=== PATIENT | male | born 1935 | race Caucasian/White ===

== ENCOUNTER 2017-01-24 11:42 | Emergency (ER) | payer MEDICARE ==
[~2017-01-24] VITALS: Ht 172.7 cm; Wt 67.6 kg
[~2017-01-24 11:42] MED LIST: ASPI-515 PO; INDA1.25 PO; LOVA10TA PO; TAMS-11 PO; VERA120C2 PO
[2017-01-24 12:20] VITALS: BP 145/66
== END 2017-01-24 12:42 | disposition home or self-care (01) ==
LOC: ED 12:40
DX: S61.412D Laceration without foreign body of left hand, subsequent encounter (principal); I10 Essential (primary) hypertension; X58.XXXD Exposure to other specified factors, subsequent encounter; Y92.89 Other specified places as the place of occurrence of the external cause; Y99.9 Unspecified external cause status
CPT/HCPCS: 99281; 99282

== ENCOUNTER → 2017-01-30 | Outpatient (CLI) | payer MEDICARE ==
[2017-01-30 11:22] LABS: ASPARTATE AMINO TRANSFERASE 9 U/L (15-37); BLOOD UREA NITROGEN 17 mg/dL (7-18)
== END | disposition home or self-care (01) ==
LOC: CFH 09:26
PROVIDERS: ATTEND Licensed Practical Nurse
DX: Z00.00 Encounter for general adult medical examination without abnormal findings (principal); I12.9 Hypertensive chronic kidney disease with stage 1 through stage 4 chronic kidney disease, or unspecified chronic kidney disease; N18.3 Chronic kidney disease, stage 3 (moderate); E78.2 Mixed hyperlipidemia; I10 Essential (primary) hypertension; J44.9 Chronic obstructive pulmonary disease, unspecified
CPT/HCPCS: 36415; 80053; 80061; 85027

== ENCOUNTER → 2017-05-07 | Outpatient (CLI) | payer MEDICARE ==
[2017-05-07 12:39] LABS: HEMATOCRIT 46.7 % (39.2-51.8); HEMOGLOBIN 15.4 g/dL (13.7-18.0); WHITE BLOOD COUNT 6.9 x10^3/uL (3.4-10)
[2017-05-07 12:59] LABS: ASPARTATE AMINO TRANSFERASE 14 U/L (15-37); BLOOD UREA NITROGEN 16 mg/dL (7-18)
== END | disposition home or self-care (01) ==
LOC: LAB 09:54
PROVIDERS: ATTEND Internal Medicine Cardiovascular Disease
DX: E78.2 Mixed hyperlipidemia (principal); I10 Essential (primary) hypertension
CPT/HCPCS: 36415; 80053; 80061; 85025

== ENCOUNTER 2017-07-09 10:38 | Emergency (ER) | payer MEDICARE ==
[~2017-07-09] VITALS: Ht 172.7 cm; Wt 66.0 kg
[2017-07-09] MEDS ORDERED: SODIUM CHLORIDE FLUSH 10ML SYR IVF ONE (11:00)
[2017-07-09] MEDS ORDERED: ALBUTEROL/IPRATROPIUM 2.5MG/0.5MG, 3 ML NPPB SCH (11:00)
[2017-07-09 11:30] LABS: BLOOD UREA NITROGEN 13 mg/dL (7-18)
[2017-07-09] MEDS ORDERED: ALBUTEROL/IPRATROPIUM 2.5MG/0.5MG, 3 ML ONE (11:41)
[2017-07-09 11:43] LABS: HEMATOCRIT 48.1 % (39.2-51.8); HEMOGLOBIN 16.4 g/dL (13.7-18.0); WHITE BLOOD COUNT 6.8 x10^3/uL (3.4-10)
[2017-07-09 11:44] LABS: DIFF TOTAL CELLS COUNTED 100 CELL DIFF
[2017-07-09 11:49] LABS: VERIFY COUNTS? YES
[2017-07-09 11:54] LABS: GIANT PLATELETS 1+; LARGE PLATELETS 1+
[2017-07-09 12:45] VITALS: BP 119/64
== END 2017-07-09 13:08 | disposition home or self-care (01) ==
LOC: ED 12:55
DX: J20.9 Acute bronchitis, unspecified (principal); J44.0 Chronic obstructive pulmonary disease with (acute) lower respiratory infection; I10 Essential (primary) hypertension
CPT/HCPCS: 36415; 71010; 80048; 82040; 83605; 83880; 85025; 93005; 94640; 99285; J7512; J7620

== ENCOUNTER → 2018-01-23 | Outpatient (CLI) | payer MEDICARE ==
[2018-01-23 12:54] LABS: CHLORIDE 105 mmol/L (98-107)
[2018-01-23 13:00] LABS: ALANINE AMINOTRANSFERASE 17 U/L (12-78); ALBUMIN 3.6 g/dL (3.4-5.0); ALKALINE PHOSPHATASE 64 U/L (45-117); ANION GAP 8 mmol/L (5-15); BILIRUBIN,TOTAL 0.6 mg/dL (0.2-1.0); CALCIUM 8.8 mg/dL (8.5-10.1); CHOL/HDL RATIO 2.8; CHOLESTEROL, TOTAL 154 mg/dL (140-239); CREATININE 1.23 mg/dL (0.7-1.3); HDL CHOL % 36 % (26-37); HDL CHOLESTEROL (DIRECT) 56 mg/dL (40-60); LDL CHOLESTEROL,CALCULATED 74 mg/dL (54-169); LDL/HDL RATIO 1.3 (0.5-3.0); TOTAL PROTEIN 7.2 g/dL (6.4-8.2); TRIGLYCERIDES 120 mg/dL (50-200); VLDL CHOLESTEROL 24 mg/dL (0-25)
== END ==
LOC: CFH 10:18
PROVIDERS: ATTEND Internal Medicine Cardiovascular Disease
DX: I10 Essential (primary) hypertension (principal); I35.1 Nonrheumatic aortic (valve) insufficiency; E78.2 Mixed hyperlipidemia; E83.51 Hypocalcemia
CPT/HCPCS: 36415; 80053; 80061

== ENCOUNTER 2018-01-24 10:42 | Emergency (ER) | payer MEDICARE ==
[~2018-01-24] VITALS: Ht 172.7 cm; Wt 67.5 kg
[2018-01-24] MEDS ORDERED: LIDOCAINE-MPF 1%, 5ML ONE ×2 (11:22→11:33)
[2018-01-24] MEDS ORDERED: LIDOCAINE-MPF 1%, 5ML INFIL ONE (11:30)
[2018-01-24] MEDS ORDERED: DIPH,PERTUSS(ACELL),TET VAC/PF 0.5 ML IM-VACC ONE (11:30)
[2018-01-24 12:59] VITALS: BP 158/78
[2018-01-24] MEDS ORDERED: BACITRACIN ZINC OINT 500U/GM, 0.9 GM ONE (13:12)
== END 2018-01-24 13:31 | disposition home or self-care (01) ==
LOC: ED 13:28
DX: S01.01XA Laceration without foreign body of scalp, initial encounter (principal); S01.81XA Laceration without foreign body of other part of head, initial encounter; I10 Essential (primary) hypertension; J45.909 Unspecified asthma, uncomplicated; J44.9 Chronic obstructive pulmonary disease, unspecified; E78.5 Hyperlipidemia, unspecified; Z87.891 Personal history of nicotine dependence; W19.XXXA Unspecified fall, initial encounter; Y93.89 Activity, other specified; Y92.89 Other specified places as the place of occurrence of the external cause; Y99.8 Other external cause status
CPT/HCPCS: 12002; 99284

== ENCOUNTER 2018-01-30 11:05 | Emergency (ER) | payer MEDICARE ==
[~2018-01-30] VITALS: Ht 172.7 cm; Wt 68.4 kg
[2018-01-30 11:10] VITALS: BP 185/79
== END 2018-01-30 12:27 | disposition home or self-care (01) ==
LOC: ED 12:26
DX: S01.01XD Laceration without foreign body of scalp, subsequent encounter (principal); I10 Essential (primary) hypertension; J44.9 Chronic obstructive pulmonary disease, unspecified; W18.30XD Fall on same level, unspecified, subsequent encounter
CPT/HCPCS: 99282

== ENCOUNTER → 2018-02-15 | Outpatient (CLI) | payer MEDICARE | LOC: CFH 10:10 | PROVIDERS: ATTEND Internal Medicine | DX: S09.90XA Unspecified injury of head, initial encounter (principal); M48.02 Spinal stenosis, cervical region; Z91.81 History of falling; X58.XXXA Exposure to other specified factors, initial encounter; Y93.89 Activity, other specified; Y92.89 Other specified places as the place of occurrence of the external cause; Y99.8 Other external cause status | CPT/HCPCS: 72050 ==

== ENCOUNTER → 2018-03-11 | Outpatient (CLI) | payer MEDICARE | END | disposition home or self-care (01) | LOC: CFH 10:28 | PROVIDERS: ATTEND Internal Medicine | DX: M48.02 Spinal stenosis, cervical region (principal); G31.9 Degenerative disease of nervous system, unspecified; R90.82 White matter disease, unspecified; M50.00 Cervical disc disorder with myelopathy, unspecified cervical region; M50.80 Other cervical disc disorders, unspecified cervical region; R20.9 Unspecified disturbances of skin sensation; Z91.81 History of falling | CPT/HCPCS: 70450; 72141 ==

== ENCOUNTER → 2018-03-21 | Outpatient (CLI) | payer MEDICARE | END | disposition home or self-care (01) | LOC: CFH 10:41 | PROVIDERS: ATTEND Orthopaedic Surgery | DX: M50.321 Other cervical disc degeneration at C4-C5 level (principal) | CPT/HCPCS: 72052 ==

== ENCOUNTER 2018-04-30 22:19 | Emergency (ER) | payer MEDICARE ==
[~2018-04-30] VITALS: Ht 172.7 cm; Wt 65.0 kg
[2018-04-30 22:27] VITALS: BP 121/65
[2018-04-30 23:32] LABS: BASOPHILS # (AUTO) 0.02 x10^3/uL (0-0.1); BASOPHILS % (AUTO) 0 % (0-1); EOSINOPHILS # (AUTO) 0.17 x10^3/uL (0-0.4); EOSINOPHILS % (AUTO) 2 % (1-7); LYMPHOCYTES # (AUTO) 1.85 x10^3/uL (1-3.4); LYMPHOCYTES % (AUTO) 23 % (22-44); MD NO; MEAN CORPUSCULAR HEMOGLOBIN 32.8 pg (27.5-34.5); MEAN CORPUSCULAR HGB CONC 34.2 g/dL (33.2-36.2); MEAN CORPUSCULAR VOLUME 95.9 fL (81-97); MONOCYTES # (AUTO) 0.56 x10^3/uL (0.2-0.8); MONOCYTES % (AUTO) 7 % (2-9); NEUTROPHILS # (AUTO) 5.42 x10^3/uL (1.8-6.8); NEUTROPHILS % (AUTO) 68 % (42-75); PLATELET COUNT 261 x10^3/uL (130-400); RED BLOOD COUNT 4.52 x10^6/uL (4.38-5.82); RED CELL DISTRIBUTION WIDTH 12.9 % (9.4-14.8)
[2018-04-30 23:42] LABS: ALBUMIN 3.3 g/dL (3.4-5.0); ANION GAP 10 mmol/L (5-15); CALCIUM 9.1 mg/dL (8.5-10.1); CHLORIDE 107 mmol/L (98-107); CREATININE 1.42 mg/dL (0.7-1.3)
[2018-04-30 23:46] LABS: TROPONIN I < 0.015 ng/mL (0.000-0.045)
== END 2018-05-01 00:49 | disposition home or self-care (01) ==
LOC: ED 05-01 00:35
DX: F10.120 Alcohol abuse with intoxication, uncomplicated (principal); J44.9 Chronic obstructive pulmonary disease, unspecified; E78.5 Hyperlipidemia, unspecified; I10 Essential (primary) hypertension; W19.XXXA Unspecified fall, initial encounter; Y93.89 Activity, other specified; Y99.8 Other external cause status; Y92.59 Other trade areas as the place of occurrence of the external cause
CPT/HCPCS: 36415; 80048; 80307; 82040; 84484; 85025; 93005; 99285

== ENCOUNTER → 2018-05-16 | Outpatient (CLI) | payer MEDICARE ==
[2018-05-16 12:37] LABS: BASOPHILS # (AUTO) 0.02 x10^3/uL (0-0.1); BASOPHILS % (AUTO) 0 % (0-1); EOSINOPHILS # (AUTO) 0.21 x10^3/uL (0-0.4); EOSINOPHILS % (AUTO) 3 % (1-7); LYMPHOCYTES # (AUTO) 1.21 x10^3/uL (1-3.4); LYMPHOCYTES % (AUTO) 19 % (22-44); MD NO; MEAN CORPUSCULAR HEMOGLOBIN 32.2 pg (27.5-34.5); MEAN CORPUSCULAR HGB CONC 33.6 g/dL (33.2-36.2); MEAN PLATELET VOLUME 9.9 fL (7.4-10.4); MONOCYTES # (AUTO) 0.44 x10^3/uL (0.2-0.8); MONOCYTES % (AUTO) 7 % (2-9); NEUTROPHILS # (AUTO) 4.36 x10^3/uL (1.8-6.8); NEUTROPHILS % (AUTO) 70 % (42-75); PLATELET COUNT 169 x10^3/uL (130-400); RED BLOOD COUNT 4.71 x10^6/uL (4.38-5.82); RED CELL DISTRIBUTION WIDTH 12.7 % (9.4-14.8)
[2018-05-16 12:47] LABS: ALBUMIN 3.3 g/dL (3.4-5.0); ANION GAP 7 mmol/L (5-15); CALCIUM 8.7 mg/dL (8.5-10.1); CHLORIDE 108 mmol/L (98-107)
[2018-05-16 12:57] LABS: ALANINE AMINOTRANSFERASE 12 U/L (12-78); ALKALINE PHOSPHATASE 65 U/L (45-117); BILIRUBIN,TOTAL 0.6 mg/dL (0.2-1.0); CHOL/HDL RATIO 4.2; CHOLESTEROL, TOTAL 208 mg/dL (140-239); CREATININE 1.26 mg/dL (0.7-1.3); FREE T4 (FREE THYROXINE) 0.93 ng/dL (0.76-1.46); HDL CHOL % 24 % (26-37); HDL CHOLESTEROL (DIRECT) 49 mg/dL (40-60); LDL CHOLESTEROL,CALCULATED 131 mg/dL (54-169); LDL/HDL RATIO 2.7 (0.5-3.0); TOTAL PROTEIN 6.7 g/dL (6.4-8.2); TRIGLYCERIDES 138 mg/dL (50-200); VLDL CHOLESTEROL 28 mg/dL (0-25)
== END | disposition home or self-care (01) ==
LOC: CFH 09:15
PROVIDERS: ATTEND Family Medicine
DX: E78.2 Mixed hyperlipidemia (principal); N40.0 Benign prostatic hyperplasia without lower urinary tract symptoms; R53.83 Other fatigue; Z87.891 Personal history of nicotine dependence
CPT/HCPCS: 36415; 80053; 80061; 84153; 84439; 84443; 84481; 85025

== ENCOUNTER → 2018-06-28 | Outpatient (CLI) | payer MEDICARE | END | disposition home or self-care (01) | LOC: CFH 11:09 | PROVIDERS: ATTEND Physician Assistant Surgical | DX: M43.22 Fusion of spine, cervical region (principal) | CPT/HCPCS: 72040 ==

== ENCOUNTER 2019-03-11 10:00 | Outpatient (CLI) | payer MEDICARE ==
[2019-03-11 12:53] LABS: BASOPHILS # (AUTO) 0.03 x10^3/uL (0-0.1); BASOPHILS % (AUTO) 1 % (0-1); EOSINOPHILS # (AUTO) 0.23 x10^3/uL (0-0.4); EOSINOPHILS % (AUTO) 4 % (1-7); LYMPHOCYTES # (AUTO) 1.25 x10^3/uL (1-3.4); LYMPHOCYTES % (AUTO) 21 % (22-44); MD NO; MEAN CORPUSCULAR HGB CONC 33.4 g/dL (33.2-36.2); MEAN CORPUSCULAR VOLUME 98.6 fL (81-97); MONOCYTES # (AUTO) 0.52 x10^3/uL (0.2-0.8); MONOCYTES % (AUTO) 9 % (2-9); NEUTROPHILS # (AUTO) 4.07 x10^3/uL (1.8-6.8); NEUTROPHILS % (AUTO) 67 % (42-75); PLATELET COUNT 184 x10^3/uL (130-400); RED BLOOD COUNT 4.81 x10^6/uL (4.38-5.82); RED CELL DISTRIBUTION WIDTH 12.8 % (9.4-14.8)
[2019-03-11 13:03] LABS: CHLORIDE 106 mmol/L (98-107)
[2019-03-11 13:12] LABS: ALANINE AMINOTRANSFERASE 19 U/L (12-78); ALBUMIN 3.6 g/dL (3.4-5.0); ALKALINE PHOSPHATASE 61 U/L (45-117); ANION GAP 3 mmol/L (5-15); BILIRUBIN,TOTAL 0.7 mg/dL (0.2-1.0); CALCIUM 8.8 mg/dL (8.5-10.1); CHOL/HDL RATIO 3.6; CHOLESTEROL, TOTAL 193 mg/dL (140-239); CREATININE 1.26 mg/dL (0.7-1.3); HDL CHOL % 28 % (26-37); HDL CHOLESTEROL (DIRECT) 54 mg/dL (40-60); LDL CHOLESTEROL,CALCULATED 120 mg/dL (54-169); LDL/HDL RATIO 2.2 (0.5-3.0); TOTAL PROTEIN 6.7 g/dL (6.4-8.2); TRIGLYCERIDES 94 mg/dL (50-200); VLDL CHOLESTEROL 19 mg/dL (0-25)
== END 2019-03-11 23:59 | disposition home or self-care (01) ==
LOC: CFH 10:00
PROVIDERS: ATTEND Internal Medicine Cardiovascular Disease
DX: E78.2 Mixed hyperlipidemia (principal); I10 Essential (primary) hypertension
CPT/HCPCS: 36415; 80053; 80061; 85025

== ENCOUNTER 2019-07-14 10:16 | Outpatient (CLI) | payer MEDICARE | END 2019-07-14 23:59 | disposition home or self-care (01) | LOC: CFH 10:16 | PROVIDERS: ATTEND Orthopaedic Surgery | DX: M47.812 Spondylosis without myelopathy or radiculopathy, cervical region (principal) | CPT/HCPCS: 72040; 72141 ==

== ENCOUNTER → 2019-10-30 | Outpatient (CLI) | payer MEDICARE ==
[2019-10-30 13:00] LABS: BASOPHILS # (AUTO) 0.04 x10^3/uL (0-0.1); BASOPHILS % (AUTO) 1 % (0-1); EOSINOPHILS # (AUTO) 0.36 x10^3/uL (0-0.4); EOSINOPHILS % (AUTO) 4 % (1-7); LYMPHOCYTES # (AUTO) 1.48 x10^3/uL (1-3.4); LYMPHOCYTES % (AUTO) 18 % (22-44); MD NO; MEAN CORPUSCULAR HEMOGLOBIN 33.1 pg (27.5-34.5); MEAN CORPUSCULAR HGB CONC 33.8 g/dL (33.2-36.2); MEAN CORPUSCULAR VOLUME 97.8 fL (81-97); MEAN PLATELET VOLUME 10.2 fL (7.4-10.4); MONOCYTES # (AUTO) 0.51 x10^3/uL (0.2-0.8); MONOCYTES % (AUTO) 6 % (2-9); NEUTROPHILS # (AUTO) 5.92 x10^3/uL (1.8-6.8); NEUTROPHILS % (AUTO) 71 % (42-75); PLATELET COUNT 185 x10^3/uL (130-400)
[2019-10-30 13:36] LABS: ALBUMIN 3.1 g/dL (3.4-5.0); ANION GAP 7 mmol/L (5-15); CALCIUM 8.5 mg/dL (8.5-10.1); CHLORIDE 107 mmol/L (98-107); CHOLESTEROL, TOTAL 187 mg/dL (140-239); CREATININE 1.39 mg/dL (0.7-1.3)
[2019-10-30 13:38] LABS: ALANINE AMINOTRANSFERASE 11 U/L (12-78); ALKALINE PHOSPHATASE 71 U/L (45-117); BILIRUBIN,TOTAL 0.3 mg/dL (0.2-1.0); CHOL/HDL RATIO 3.5; HDL CHOL % 28 % (26-37); HDL CHOLESTEROL (DIRECT) 53 mg/dL (40-60); LDL CHOLESTEROL,CALCULATED 120 mg/dL (54-169); LDL/HDL RATIO 2.3 (0.5-3.0); TOTAL PROTEIN 6.2 g/dL (6.4-8.2); TRIGLYCERIDES 69 mg/dL (50-200); VLDL CHOLESTEROL 14 mg/dL (0-25)
== END | disposition home or self-care (01) ==
LOC: CFH 09:27
PROVIDERS: ATTEND Internal Medicine Cardiovascular Disease
DX: I12.9 Hypertensive chronic kidney disease with stage 1 through stage 4 chronic kidney disease, or unspecified chronic kidney disease (principal); N18.2 Chronic kidney disease, stage 2 (mild); I35.1 Nonrheumatic aortic (valve) insufficiency; E78.2 Mixed hyperlipidemia; F17.200 Nicotine dependence, unspecified, uncomplicated
CPT/HCPCS: 36415; 80053; 80061; 85025

== ENCOUNTER 2020-01-22 12:08 | Emergency (ER) | payer MEDICARE ==
[~2020-01-22] VITALS: Ht 172.7 cm; Wt 63.0 kg
[2020-01-22 12:10] VITALS: BP 195/70
[2020-01-22 12:44] LABS: MICROSCOPIC NOT IND
[2020-01-22 12:48] LABS: CULTURE INDICATED? NO
--- NOTE | 2020-01-22 13:10 | NUR ---
PT RESTING, UA OBTAINED. PT HAS CO OF ABDOMINAL PAIN. NO N/V.
--- NOTE | 2020-01-22 13:38 | NUR ---
Patient/Caregiver given discharge instructions and they have confirmed that they understand the instructions. Patient ambulatory with steady gait.
== END 2020-01-22 13:39 | disposition home or self-care (01) ==
LOC: ED 12:41
DX: J44.1 Chronic obstructive pulmonary disease with (acute) exacerbation (principal); R10.31 Right lower quadrant pain; Z87.891 Personal history of nicotine dependence
CPT/HCPCS: 74022; 81003; 99284

== ENCOUNTER 2020-07-06 08:35 | Emergency (ER) | payer MEDICARE ==
[~2020-07-06] VITALS: Ht 172.7 cm; Wt 65.2 kg
[2020-07-06 08:47] VITALS: BP 149/73
[2020-07-06] MEDS ORDERED: CEFAZOLIN 1,000 MG IM ONE (09:30)
[2020-07-06] MEDS ORDERED: DIPH,PERTUSS(ACELL),TET VAC/PF 0.5 ML IM-VACC ONE ×2 (09:30→09:40)
[2020-07-06] MEDS ORDERED: CEFAZOLIN 1,000 MG ONE ×2 (09:40→09:52)
[2020-07-06] MEDS ORDERED: LIDOCAINE-MPF 1%, 2ML ONE (09:41)
== END 2020-07-06 11:09 | disposition home or self-care (01) ==
LOC: ED 09:55
DX: S61.452A Open bite of left hand, initial encounter (principal); L03.114 Cellulitis of left upper limb; W55.01XA Bitten by cat, initial encounter; Y93.89 Activity, other specified; Y92.009 Unspecified place in unspecified non-institutional (private) residence as the place of occurrence of the external cause; Y99.8 Other external cause status
CPT/HCPCS: 29125; 90471; 90715; 96372; 99284; J0690

== ENCOUNTER 2020-10-18 13:14 | Emergency (ER) | payer MEDICARE ==
[~2020-10-18] VITALS: Ht 172.7 cm; Wt 64.0 kg
[2020-10-18] MEDS ORDERED: LIDOCAINE-MPF 1%, 5ML ONE (14:00)
--- NOTE | 2020-10-18 14:49 | NUR ---
Pt was shoveling snow this AM and fell, hitting head. Pt presents to the ER with 1.5 washclothes saturated with blood from head wound. Pt denies LOC, states she thinks he hit the car bumper. Pt A&Ox4, NADN. VIET Moncada at bedside for intial assessment of wound.
--- NOTE | 2020-10-18 15:19 | NUR ---
Pt to and from CT.
--- NOTE | 2020-10-18 15:42 | NUR ---
Tj EMT at bedside to clean wound. Pt tolerating well.
--- NOTE | 2020-10-18 16:20 | NUR ---
Lidocaine administered by Jeb WOOD PA. Pt states he's had his tetnus shot within the past 5 years.
[2020-10-18 16:37] VITALS: BP 146/78
--- NOTE | 2020-10-18 16:40 | NUR ---
Pt states that he will ask his neighbors for help shoveling snow in the future. Receptive to all education.
== END 2020-10-18 16:39 | disposition home or self-care (01) ==
LOC: ED 15:59
DX: S01.01XA Laceration without foreign body of scalp, initial encounter (principal); S09.90XA Unspecified injury of head, initial encounter; I10 Essential (primary) hypertension; J44.9 Chronic obstructive pulmonary disease, unspecified; E78.5 Hyperlipidemia, unspecified; Z87.891 Personal history of nicotine dependence; W18.30XA Fall on same level, unspecified, initial encounter; Y93.89 Activity, other specified; Y92.009 Unspecified place in unspecified non-institutional (private) residence as the place of occurrence of the external cause; Y99.8 Other external cause status
CPT/HCPCS: 12032; 70450; 72125; 99285

== ENCOUNTER 2020-10-24 12:23 | Emergency (ER) | payer MEDICARE ==
[~2020-10-24] VITALS: Ht 172.7 cm; Wt 62.1 kg
[~2020-10-24 12:23] MED LIST changes: +ASPI-1024 PO; -ASPI-515 PO
[2020-10-24 12:45] VITALS: BP 107/86
--- NOTE | 2020-10-24 12:54 | NUR ---
10 ranjana removed from scalp lac. Pt tolerated well, wound appears well healing. Tiago LLANOS in to evaluate wound after staple removal.
== END 2020-10-24 12:59 | disposition home or self-care (01) ==
LOC: ED 12:53
DX: S01.01XD Laceration without foreign body of scalp, subsequent encounter (principal); J44.9 Chronic obstructive pulmonary disease, unspecified; E78.5 Hyperlipidemia, unspecified; I10 Essential (primary) hypertension; Z87.891 Personal history of nicotine dependence; X58.XXXD Exposure to other specified factors, subsequent encounter
CPT/HCPCS: 99281

== ENCOUNTER → 2021-01-14 | Outpatient (CLI) | payer MEDICARE ==
[~2021-01-14] MED LIST changes: +ALBU90AE INH; -ASPI-1024 PO; +ASPI-963 PO; +ASPI81TA45 PO; +CYAN1TAB29 PO; +MV-M1TAB16 PO; +ROSU20TA2 PO; +SPIR25TA5 PO; +VERA180T6 PO; +symbicort INH
[2021-01-14 11:56] LABS: ALBUMIN 3.5 g/dL (3.4-5.0); ANION GAP 7 mmol/L (5-15); CALCIUM 9.1 mg/dL (8.5-10.1); CHLORIDE 105 mmol/L (98-107)
[2021-01-14 12:01] LABS: ALANINE AMINOTRANSFERASE 11 U/L (12-78); ALKALINE PHOSPHATASE 58 U/L (45-117); BILIRUBIN,TOTAL 0.6 mg/dL (0.2-1.0); CREATININE 1.18 mg/dL (0.7-1.3); TOTAL PROTEIN 6.8 g/dL (6.4-8.2)
== END | disposition home or self-care (01) ==
LOC: STAR 10:42
PROVIDERS: ATTEND Thoracic Surgery (Cardiothoracic Vascular Surgery)
DX: Z01.818 Encounter for other preprocedural examination (principal); K40.20 Bilateral inguinal hernia, without obstruction or gangrene, not specified as recurrent; I44.4 Left anterior fascicular block; R94.31 Abnormal electrocardiogram [ECG] [EKG]; I51.7 Cardiomegaly; Z20.822 Contact with and (suspected) exposure to COVID-19
CPT/HCPCS: 36415; 80053; 93005; U0003

== ENCOUNTER 2021-01-19 06:51 | Day surgery (SDC) | payer MEDICARE ==
[~2021-01-19] VITALS: Ht 172.7 cm; Wt 63.5 kg
[~2021-01-19 06:51] MED LIST changes: +BUPIVACAINE/PF 0.5% ONE; +EPINEPHRINE 1 MG/ML, 1ML ONE
[2021-01-19 07:11] VITALS: BP 156/77
[2021-01-19] MEDS ORDERED: CHLORHEXIDINE 15 ML UDC ONE (07:37)
[2021-01-19] MEDS ORDERED: LACTATED RINGERS 1,000 ML IV SCH ×2 (08:00→11:00)
[2021-01-19] MEDS ORDERED: CHLORHEXIDINE 15 ML UDC PO ONE (08:00)
[2021-01-19] MEDS ORDERED: FENTANYL PF 250 MCG/5ML ONE (08:09)
[2021-01-19] MEDS ORDERED: ROCURONIUM 10MG/ML,5ML ONE (08:10)
[2021-01-19] MEDS ORDERED: GLYCOPYRROLATE 0.2MG/1ML, 5ML ONE (08:10)
[2021-01-19] MEDS ORDERED: NEOSTIGMINE 1 MG/ML, 10ML ONE (08:10)
[2021-01-19] MEDS ORDERED: PROPOFOL 10 MG/ML, 20ML ONE (08:10)
[2021-01-19] MEDS ORDERED: CEFAZOLIN 1,000 MG ONE (08:10)
[2021-01-19 08:12] VITALS: BP 170/73
[2021-01-19] MEDS ORDERED: MEPERIDINE/PF 25MG/0.5ML IVPush PRN (09:00)
[2021-01-19] MEDS ORDERED: LABETALOL 5MG/ML, 20ML IV PRN (09:00)
[2021-01-19] MEDS ORDERED: OXYcodone 5 MG/5 ML ORAL.SOL UDC PO PRN (09:00)
[2021-01-19] MEDS ORDERED: morphine SULFATE 10 MG/ML, 1ML IVPush PRN ×2 (09:00→10:00)
[2021-01-19] MEDS ORDERED: ACETAMINOPHEN 325 MG TABLET PO PRN (09:00)
[2021-01-19] MEDS ORDERED: HYDROmorphone 1 MG/ML, 1ML INJ IVPush PRN (09:00)
[2021-01-19] MEDS ORDERED: FENTANYL PF 100 MCG/2ML IV PRN (09:00)
[2021-01-19] MEDS ORDERED: hydrALAzine 20 MG/ML, 1ML IV PRN (09:00)
[2021-01-19] MEDS ORDERED: ONDANSETRON 2MG/ML, 2ML IVPush PRN ×2 (09:00→10:00)
[2021-01-19] MEDS ORDERED: BUPIVACAINE/PF-EPI 0.5% 1:200K INFIL ONE (09:13)
[2021-01-19] MEDS ORDERED: HYDROcodone/APAP 5/325 TABLET PO PRN (10:00)
[2021-01-19] MEDS ORDERED: HYDR-3237 PO (10:02)
== END 2021-01-19 11:25 | disposition home or self-care (01) ==
LOC: OUT 06:51
PROVIDERS: ATTEND Thoracic Surgery (Cardiothoracic Vascular Surgery)
DX: K40.20 Bilateral inguinal hernia, without obstruction or gangrene, not specified as recurrent (principal); I10 Essential (primary) hypertension; J45.909 Unspecified asthma, uncomplicated; E78.5 Hyperlipidemia, unspecified; F17.210 Nicotine dependence, cigarettes, uncomplicated; Z79.82 Long term (current) use of aspirin; Z79.899 Other long term (current) drug therapy; Z72.89 Other problems related to lifestyle; Z98.890 Other specified postprocedural states
CPT/HCPCS: 49650; C1727; C1781; J0171; J0690; J2704; J2710; J3010; J7120